=== PATIENT | male | born 1945 | race American Indian/Alaskan Native ===

== ENCOUNTER 2019-05-03 13:17 | Outpatient (CLI) | payer MEDICARE ==
[2019-05-03 14:09] LABS: Blood Urea Nitrogen 21 mg/dL (9-20)
--- NOTE | 2019-05-03 15:34 | Cat Scan Report ---
CTA of the chest INDICATION: DILATED AORTIC ROOT,ATRIAL FIBRILLATION. TECHNIQUE: All CT scans at this location are performed using the following dose modulation technique: Automated exposure control. Helical slices were obtained through the chest following the administration of intr avenous contrast. Imaging is performed during the pulmonary arterial phase and time to evaluate the p ulmonary arteries. There is very little contrast in the aorta but there is some. Axial coronal and sa gittal Reformatted images were obtained. COMPARISON: Comparison is made to CT scan dated 05/04/2011 FINDINGS: The heart size is mildly enlarged. Main pulmonary artery and right and left pulmonary artery branches fill satisfactorily with contrast. No pulmonary embolus is seen. The proximal ascending aorta measures 4 cm in diameter and is unchanged. The mid ascending aorta natalie ures 4.2 cm unchanged from previous. Proximal aortic arch measures approximately 4.5 cm unchanged fro m previous. The mid arch measures 4.1 cm currently and measured 3.8 cm previously. The proximal desce nding aorta measures 3.7 cm and measured 3.5 cm previously. The distal descending aorta measures 3.2 cm and is unchanged. On review of lung windows. No acute pulmonary disease is seen. There is some linear scar or atelectas is in the left lung base. There are bilateral adrenal nodules. The right nodule measures 2 cm and is unchanged and left measure s 1.6 cm currently and measured 1.3 cm previously. The left adrenal nodule measures 3 Hounsfield unit s and is likely an adenoma On review of bone windows, no acute osseous abnormalities are seen. IMPRESSION: This study was timed and imaged as a CTA to evaluate the pulmonary arterial system. No pulmonary embo castillo is seen. There is dilatation of the thoracic aorta with measurements given above. There is mild change in the aortic diameter at the level of the aortic arch and proximal descending aorta when compared to the pr ior study. Aortic diameters otherwise stable when compared to 2012. Right adrenal nodule appears unchanged from the prior study. Left adrenal nodule is slightly increase d in size. The left adrenal nodule measures 3 Hounsfield units and is likely an adenoma. Signer Name: Jose Luis Frank MD Signed: 05/03/2019 3:30 PM Workstation Name: [id number]
== END 2019-05-03 13:18 | disposition home or self-care (01) ==
LOC: CT 13:17
PROVIDERS: ATTEND Internal Medicine Cardiovascular Disease
DX: I26.99 Other pulmonary embolism without acute cor pulmonale (principal); I48.20 Chronic atrial fibrillation, unspecified; I77.810 Thoracic aortic ectasia
CPT/HCPCS: 36415; 71275; 82565; 84520; Q9967

== ENCOUNTER 2019-09-20 06:02 | Day surgery (SDC) | payer MEDICARE ==
[2019-09-18 10:46] LABS: Hematocrit 45.5 % (35.5-45.6); Hemoglobin 14.7 gm/dl (11.8-15.2); Mean Corpuscular HGB Conc 32 % (32-34); Mean Corpuscular Volume 79 fl (84-94); Platelet Count 145 K/mm3 (140-440); Red Blood Count 5.78 M/mm3 (3.65-5.03); Red Cell Distribution Width 16.8 % (13.2-15.2)
[2019-09-18 11:10] LABS: Alanine Aminotransferase 17 units/L (7-56); Albumin 3.9 g/dL (3.9-5); BUN/Creatinine Ratio 16; Blood Urea Nitrogen 18 mg/dL (9-20); Calcium 9.1 mg/dL (8.4-10.2); Hemolysis Index 20
--- NOTE | 2019-09-18 14:19 | Anesthesia Consultation ---
Anesthesia Consult and Med Hx Date of service: 09/20/19 - Airway Anesthetic Teeth Evaluation: Good ROM Head & Neck: Adequate Mental/Hyoid Distance: Adequate Mallampati Class: Class III Intubation Access Assessment: Possibly Difficult - Pulmonary Exam CTA: Yes - Cardiac Exam Cardiac Exam: No Murmur - Pre-Operative Health Status ASA Pre-Surgery Classification: ASA3 Proposed Anesthetic Plan: General - Pulmonary Hx Smoking: Yes (occasional cigars) Hx Asthma: Yes (last inhaler use 1 wk ago) Hx Sleep Apnea: Yes (uses mouth piece, no CPAP) - Cardiovascular System Hx Hypertension: Yes Hx Heart Attack/AMI: No (resistent HTN, normal EF on recent TTE) Hx Percutaneous Transluminal Coronary Angioplasty (PTCA): No Hx Cardia Arrhythmia: Yes (A-fib, last dose eliquis 09/16. 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
[~2019-09-20 06:02] MED LIST: CELECOXIB 200 MG CAP PO NR; GABAPENTIN 300 MG CAP PO NR; LACTATED RINGERS 1,000 ML IV SCH; MAGNESIUM OXIDE 400 MG TAB PO SCH
[2019-09-20] MEDS ORDERED: BACTERIOSTATIC SODIUM CHLORIDE 0.9% 30 ML VIAL INFILTRATI ONE (06:24)
[2019-09-20 07:15] LABS: INR 0.98 (0.87-1.13)
[2019-09-20 07:16] LABS: Partial Thromboplastin Time 28.1 Sec. (24.2-36.6)
[2019-09-20] MEDS ORDERED: HYDROmorphone 1 MG/1 ML INJ IV PRN (07:29)
--- NOTE | 2019-09-20 07:30 | Anesthesia Day of Surgery ---
Anesthesia Day of Surgery - Day of Surgery Patient Examined: Yes Patient H&P Reviewed: Yes Patient is NPO: Yes Beta Blockers: Yes (will give home dose carvedilol in preop) Cardiac Clearance: Yes
[2019-09-20] MEDS ORDERED: LIDOCAINE MPF (2%) 20 MG/1 ML VIAL 5 ML ONE (07:34)
[2019-09-20] MEDS ORDERED: BUPIVACAINE/PF (0.25%) 2.5 MG/ML 30 ML VIAL INFILTRATI ONE (07:34)
[2019-09-20] MEDS ORDERED: NEOMY 40 MG/POLYMYXIN B 200,000 UNITS/ML (GU) AMPULE IR ONE ×2 (07:34→08:40)
[2019-09-20] MEDS ORDERED: ONDANSETRON 4 MG/2 ML INJ ONE (07:34)
[2019-09-20] MEDS ORDERED: dexAMETHasone 20 MG/5 ML VIAL ONE (07:34)
[2019-09-20] MEDS ORDERED: propofoL 200 MG/20 ML VIAL IV ONE (07:35)
[2019-09-20] MEDS ORDERED: HYDROmorphone 1 MG/1 ML INJ ONE (07:35)
[2019-09-20] MEDS ORDERED: ceFAZolin/Water 2 GM/20 ML 2 GM/20 ML SYRINGE IV ONE (07:54)
[2019-09-20] MEDS ORDERED: carvediloL 6.25 MG TAB PO SCH (08:00)
[2019-09-20] MEDS ORDERED: ceFAZolin/STERILE WATER 2 GM/20 ML SYRINGE IV NR (08:05)
--- NOTE | 2019-09-20 08:22 | Post Operative Note ---
Date of procedure: 09/20/19 Pre-op diagnosis: rih sliding Post-op diagnosis: same Findings: as above Procedure: r groin expl repair rih Anesthesia: GETA Surgeon: HERNÁN MOBLEY Eligibility Specialist: CRISTÓBAL SUAZO Estimated blood loss: minimal Pathology: list (sac) Specimen disposition: to lab Condition: stable Disposition: PACU
[2019-09-20] MEDS ORDERED: SODIUM CHLORIDE 0.9% IRR 1,500 ML BOTTLE IR ONE (08:40)
[2019-09-20] MEDS ORDERED: ROCURONIUM 50 MG/5 ML INJ IV ONE (10:00)
[2019-09-20] MEDS ORDERED: NEOSTIGMINE 10MG/10 ML INJ MDV ONE (10:01)
[2019-09-20] MEDS ORDERED: GLYCOPYRROLATE 0.4 MG/2 ML INJ ONE (10:01)
[2019-09-20] MEDS ORDERED: hydrALAZINE 20 MG/1 ML INJ ONE (10:30)
[2019-09-20] MEDS ORDERED: hydrALAZINE 20 MG/1 ML INJ IV PRN (10:30)
--- NOTE | 2019-09-20 11:39 | Discharge Summary ---
Short Stay Discharge Plan Activity: other (no lifting ) Weight Bearing Status: Full Weight Bearing Diet: low fat, low cholesterol, low salt Wound: open to air, keep clean and dry Special Instructions: other (ice x 24 hrs and in rr ) Additional Instructions: NO HEAVY LIFTING. ICE PACK TO OPERATIVE SITE. Follow up with: CORRY PALACIOS MD [Primary Care Provider] - 7 Days HERNÁN MOBLEY MD [Staff Physician] - 7 Days Forms: Outpatient Surgery DC Inst.
[2019-09-20 11:54] VITALS: BP 165/90
--- NOTE | 2019-09-20 12:26 | Post Anesthesia Evaluation ---
- Post Anesthesia Evaluation Patient Participated: Yes Airway Patent: Yes Stable Respiratory Function: Yes Nausea/Vomiting: No Temp > 96.8F: Yes Pain Manageable: Yes Adequeate Hydration: Yes Anesthesia Complications: No
--- NOTE | 2019-09-20 15:58 | Operative Report ---
PREOPERATIVE DIAGNOSES: Huge sliding right inguinal hernia, very large right hydrocele. POSTOPERATIVE DIAGNOSES: Huge sliding right inguinal hernia, very large right hydrocele. PROCEDURES: Right inguinal hernia repair with plug and mesh and right hydrocele repair. SURGEONS: Dr. Leno Ye and ____ ANESTHESIA: General. FINDINGS: This is a gentleman with huge defect in the right inguinal area with the bowel in the scrotum. He now presents for treatment. All risks and implications discussed. DESCRIPTION OF PROCEDURE: The patient was brought to the operating room and placed on the operating table. Following induction of anesthesia, placed over the ____ table, prepped and draped in usual sterile fashion. An oblique incision was made over the right inguinal area, carried down through the external oblique aponeurosis. This was opened and a huge amount of bowel coming through the inguinal ring was down to the scrotum. We were able to reduce this and get around the cord and the hernia sac. At this point, with blunt and sharp dissection, the spermatic cord and vasculature and vasa were from the sac. We opened the sac, it was huge and high ligation was carried out. This was doubly tied and ligated. At this point, we delivered the testis, which was filled with at least 80 mL of fluid, which was evacuated and with the lower procedure, we did a hydrocele repair. Testis was then placed back and the sutures of Ethibond were placed circumferentially and using a mesh, we created an opening. Circumferential mesh was placed and secured to the keyhole as well. The patient tolerated the procedure well. The nerve was preserved and out of harm's way, minimal blood loss. Superficial fascia was reapproximated with 2-0 Vicryl, superficial fatty tissue with 2-0 Vicryl. We were able to place 2-3 sutures of 2-0 Vicryl for the external oblique aponeurosis, which was very attenuated. The skin was closed with clips. The patient tolerated the procedure well and brought to recovery in stable condition. JOB# [id number] DAYANARA/ROSEY
== END 2019-09-20 12:35 | disposition home or self-care (01) ==
LOC: OR 06:02
PROVIDERS: ATTEND Urology
DX: K40.90 Unilateral inguinal hernia, without obstruction or gangrene, not specified as recurrent (principal); N43.2 Other hydrocele; Z11.59 Encounter for screening for other viral diseases; F17.210 Nicotine dependence, cigarettes, uncomplicated; I42.9 Cardiomyopathy, unspecified; E78.00 Pure hypercholesterolemia, unspecified; I48.91 Unspecified atrial fibrillation; I10 Essential (primary) hypertension; J45.909 Unspecified asthma, uncomplicated; G47.30 Sleep apnea, unspecified; M19.90 Unspecified osteoarthritis, unspecified site; D64.9 Anemia, unspecified; Z98.890 Other specified postprocedural states; Z79.899 Other long term (current) drug therapy; Z86.2 Personal history of diseases of the blood and blood-forming organs and certain disorders involving the immune mechanism
CPT/HCPCS: 36415; 49505; 55040; 80053; 82962; 85027; 85610; 85730; 88302; J0360; J0690; J1100; J1170; J2405; J2704; J2710; J7120; U0003; C1781